=== PATIENT | male | born 1955 | race Two or more races ===

== ENCOUNTER 2018-03-30 12:50 | Emergency (ER) | payer OTHER ==
[2018-03-30 13:16] VITALS: BP 124/78; PULSE 70; TEMP 98; BMI 29.2
[2018-03-30] MEDS ORDERED: KETOROLAC TROMETHAMINE 60 MG/2 ML VIAL IM ONE (13:47)
--- NOTE | 2018-03-30 13:58 | PDOC ---
History of Present Illness - General Chief Complaint: Injury Stated Complaint: FALL Time Seen by Provider: 03/30/18 13:23 History Source: Patient - History of Present Illness Occurred: reports: this afternoon Pain Location: reports: chest, upper extremity Method of Injury: Yes: fall Past History - Past Medical History Allergies/Adverse Reactions: Allergies Allergy/AdvReac Type Severity Reaction Status Date / Time No Known Allergies Allergy Verified 03/30/18 13:16 Home Medications: Ambulatory Orders Ibuprofen [Motrin -] 2 tab PO Q6H #30 tablet 03/30/18 Anemia: No Asthma: No Cancer: No Cardiac Disorders: No CVA: No COPD: No CHF: No Dementia: No Diabetes: No GI Disorders: No Disorders: No HTN: No Hypercholesterolemia: No Liver Disease: No Seizures: No Thyroid Disease: No - Surgical History Abdominal Surgery: No Appendectomy: No Cardiac Surgery: No Cholecystectomy: Yes Lung Surgery: No Neurologic Surgery: No Orthopedic Surgery: No - Immunization History Immunization Up to Date: Yes - Suicide/Smoking/Psychosocial Hx Smoking History: Never smoked Have you smoked in the past 12 months: No Hx Alcohol Use: No Substance Use Type: None Review of Systems - Review of Systems Respiratory: No: Shortness of Breath Cardiac (ROS): Yes: Chest Pain Musculoskeletal: Yes: Joint Pain, Joint Swelling *Physical Exam - Vital Signs Last Vital Signs Temp Pulse Resp BP Pulse Ox 98 F 70 18 124/78 99 03/30/18 13:12 03/30/18 13:12 03/30/18 13:12 03/30/18 13:12 03/30/18 13:12 - Physical Exam General Appearance: Yes: Appropriately Dressed, Moderate Distress HEENT: positive: Normal Voice Neck: positive: Supple. negative: Tender Respiratory/Chest: positive: Chest Tender (to L upper chest, no crepitus of step offs), Normal Breath Sounds. negative: Respiratory Distress Cardiovascular: positive: Regular Rate, S1, S2 Gastrointestinal/Abdominal: positive: Soft Extremity: positive: Other (deformity to radial aspect of L wrist, NVI) Integumentary: positive: Dry, Warm Neurologic: positive: Fully Oriented, Alert, Normal Mood/Affect Moderate Sedation - Procedure Monitoring Vital Signs: Procedure Monitoring Vital Signs Temperature 98 F 03/30/18 13:12 Pulse Rate 70 03/30/18 13:12 Respiratory Rate 18 03/30/18 13:12 Blood Pressure 124/78 03/30/18 13:12 O2 Sat by Pulse Oximetry (%) 99 03/30/18 13:12 ED Treatment Course - RADIOLOGY Radiology Studies Ordered: Category Date Time Status CHEST PA & LAT [RAD] Stat Radiology 03/30/18 13:47 Ordered RIBS BILATERAL [RAD] Stat Radiology 03/30/18 13:46 Ordered WRIST W/HAND-LEFT* [RAD] Stat Radiology 03/30/18 13:46 Ordered Medical Decision Making - Medical Decision Making 03/30/18 13:48 62-year-old male, no significant history here with multiple injuries status post fall. Patient states this a.m. while taking down [employer] decorations, chair that he was standing on fell over and that he landed mostly on his left side. Complaining of severe pain to left wrist. Also has pain to left chest, worse with deep inspiration. No head injury or LOC. Not on blood thinners See exam L wrist fx +deformity on exam, NVI -pain control -XR -splint -ortho c/s for f/u 03/30/18 15:13 + radial styloid fx. D/w Dr Caban of [facility] states he will come evaluate pt in the ED and should be here within ~30 minutes. Pt made aware 03/30/18 15:55 Dr[address] Caban and Dr. Gould of orthopedic evaluating patient in the ED. MDs recommending CAT scan of left wrist for better evaluation 03/30/18 16:49 CT demonstrates comminuted fx of distal radius. Splinted by ortho and given sling to elevate extremity at home as discussed in ED. As per Ortho, patient will most likely need surgery for his fracture and. M.D. recommending follow- up with hand surgeon. Patient given follow-up information for Dr. Porras. Stable for discharge to take [id number] medication as needed *DC/Admit/Observation/Transfer Diagnosis at time of Disposition: Radial fracture Qualifiers: Encounter type: initial encounter Radius location: styloid process Fracture type: closed Fracture alignment: nondisplaced Laterality: left Qualified Code(s) : S52.515A - Nondisplaced fracture of left radial styloid process, initial encounter for closed fracture - Discharge Dispostion Disposition: HOME - Prescriptions Prescriptions: Ibuprofen [Motrin -] 2 tab PO Q6H #30 tablet - Referrals Referrals: Easton Rico MD [Primary Care Provider] - Marco Porras MD [Staff Physician] - - Patient Instructions Printed Discharge Instructions: Wrist Fracture Additional Instructions: You have a wrist fracture and was placed in a splint by orthopedics Keep splint in place and follow up with Chiquita of general surgery as you may need surgery as was discussed with you by orthopedics IT is extremely important that you elevate left extremity at home at all times to reduce and improves swelling. At nights elevate extremity by placing a pillow under your left arm. Take Motrin for pain as needed - Post Discharge Activity Forms/Work/School Notes: Back to Work
[2018-03-30] MEDS ORDERED: KETOROLAC TROMETHAMINE 60 MG/2 ML VIAL ONE (14:24)
--- NOTE | 2018-03-30 16:11 | CONSULT ---
Consult - text type - Consultation Consultation Note: ORTHOPEDIC SURGERY CONSULTATION NOTE Department of Orthopedic Surgery HISTORY OF PRESENT ILLNESS Mr. Del Rosario is a 62 year old right hand dominant male who presents to [facility] Emergency Room with left wrist pain after a fall. The orthopedic service was consulted for a left distal radius fracture. The injury occurred when he fell from a chair while trying to hang curtains. The patient notes significant pain and swelling to the dorsal lateral aspect of his wrist, which improves with rest and elevation. Denies any other injuries. Denies numbness, tingling or other constitutional complaints. Denies any previous pain to his left upper extremity, wrist or hand. Denies/Endorses tobacco use, drug use, alcohol abuse. He works in maintenance supervision. The patient lives with family and uses no assistive devices at baseline. FAMILY HISTORY na REVIEW OF SYMPTOMS A twelve-point review of systems was performed and was negative except as noted in HPI. PHYSICAL EXAM Constitutional: Alert and oriented to person, place, and time. Appears well- developed and well-nourished. No acute distress, appropriate mood and affect. Pulmonary: Breathing comfortably, normal air movement, no audible wheezing. Right Upper Extremity: Skin warm, dry, and intact; no lesions, rashes or ulcers noted. Muscle mass equal and symmetric to contralateral side. No atrophy noted. No masses or effusions noted. No tenderness to palpation all joints; nontender throughout rest of extremity. Full passive and active ROM, free from pain. Joints stable with no pathologic laxity. M/R/U/MSK/AX motor intact; SILT distally; 2+ radial pulses; Cap refill brisk. Tone and reflexes normal. Left Upper Extremity: Skin warm, dry, and intact; no lesions, rashes or ulcers noted. Muscle mass equal and symmetric to contralateral side. No atrophy noted. No masses or effusions noted. Tender to palpation at the left lateral and dorsal aspect of the wrist. Nontender throughout rest of extremity. LROM of the wrist and thumb in flexion and extension secondary to pain and swelling of the wrist. Full passive and active ROM, free from pain of the shoulder and elbow. Joints otherwise stable with no pathologic laxity. M/R/U/MSK/AX motor intact; SILT distally; 2+ radial pulses; Cap refill brisk. Tone and reflexes normal. Right Lower Extremity: Skin warm, dry, and intact; no lesions, rashes or ulcers noted. Muscle mass equal and symmetric to contralateral side. No atrophy noted. No masses or effusions noted. No tenderness to palpation all joints; nontender throughout rest of extremity. No cords or calf tenderness No significant calf/ankle edema. Full passive and active ROM, free from pain. Joints stable with no pathologic laxity. EHL/TA/GS motor intact; SILT distally; 2+ DP pulses; Cap refill brisk. Tone and reflexes normal. Left Lower Extremity: Skin warm, dry, and intact; no lesions, rashes or ulcers noted. Muscle mass equal and symmetric to contralateral side. No atrophy noted. No masses or effusions noted. No tenderness to palpation all joints; nontender throughout rest of extremity. No cords or calf tenderness No significant calf/ankle edema. Full passive and active ROM, free from pain. Joints stable with no pathologic laxity. EHL/TA/GS motor intact; SILT distally; 2+ DP pulses; Cap refill brisk. Tone and reflexes normal. Active Problems Problem Status Category Onset Radial fracture Acute Medical Social History Smoking history Never smoked Hx Alcohol Use No Allergies Allergy/AdvReac Type Severity Reaction Status Date / Time No Known Allergies Allergy Verified 03/30/18 13:16 Vital Signs (last) Temp Pulse Resp BP Pulse Ox 98 F 70 18 124/78 99 03/30/18 13:12 03/30/18 13:12 03/30/18 13:12 03/30/18 13:12 03/30/18 13:12 Intake and Output 03/28/18 03/29/18 03/30/18 23:59 23:59 23:59 Other: Weight 160 lb Height 5 ft 2 in Body Mass Index (BMI) 29.2 IMAGING I personally reviewed all radiographs, CT, and other imaging. They demonstrate an intra-articular comminuted left distal radius fracture. 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 ASSESSMENT AND PLAN Mr. Del Rosario is a 62 year old male presenting status post fall from a chair while putting up his curtains, with a left distal radius fracture. We have reviewed the imaging and clinical findings in detail, as well as their potential implications. After appropriate informed discussion, the patient was placed in a well-padded splint. Patient was instructed regarding: non weight bearing on fractured side. signs and symptoms of compartment syndrome and need to seek immediate care should new onset numbness, tingling, or significantly increasing pain occur. maintain strict elevation above the level of the heart for the next 3-4 days. - Rest/Ice/Elevate left wrist in splint. keeping the splint clean and dry. Sling for comfort. avoiding NSAID medications. All questions were answered. Thank you for involving our team in the care of this patient. I recommend follow up with a hand surgeon for surgical workup. Ryan Gould, DO Orthopedic Surgery
== END 2018-03-30 17:30 | disposition home or self-care (01) ==
LOC: JERFT 12:50
PROC: 2W3DX1Z Immobilization of Left Lower Arm using Splint (ICD-10-PCS; principal; 2018-03-30)
PROC: 3E0233Z Introduction of Anti-inflammatory into Muscle, Percutaneous Approach (ICD-10-PCS; 2018-03-30)
DX: S52.515A Nondisplaced fracture of left radial styloid process, initial encounter for closed fracture (principal); R07.9 Chest pain, unspecified; W07.XXXA Fall from chair, initial encounter; Y93.E9 Activity, other interior property and clothing maintenance; Y92.038 Other place in apartment as the place of occurrence of the external cause; Y99.8 Other external cause status
CPT/HCPCS: 71046-TC-FY; 71111-TC-FY; 73110-TC-LR-FY; 73130-TC-LT-FY; 73200-TC-RT; 99281-25

== ENCOUNTER 2023-03-12 04:49 | Day surgery (SDC) | payer OTHER ==
[2023-03-07 10:08] VITALS: BMI 29.6
[2023-03-12 09:54] VITALS: TEMP 98
[2023-03-12 12:58] VITALS: BP 121/68; PULSE 43; RESP 16
== END 2023-03-12 12:59 | disposition home or self-care (01) ==
LOC: JASU-ENDO 04:49
PROVIDERS: ATTEND Internal Medicine Gastroenterology
PROC: 0DJD8ZZ Inspection of Lower Intestinal Tract, Via Natural or Artificial Opening Endoscopic (ICD-10-PCS; principal; 2023-03-12 08:45)
DX: Z12.11 Encounter for screening for malignant neoplasm of colon (principal); K64.8 Other hemorrhoids